=== PATIENT | female | born 1980 | race African-American/Black ===

== ENCOUNTER → 2019-08-03 | Emergency (ER) | payer OTHER ==
[~2019-08-03] VITALS: Ht 160 cm; Wt 65.8 kg
--- NOTE | 2019-08-03 05:36 | NUR ---
ED Nurse Note: Patient brought into ED by RA Soria from home c/o substernal chest pain with onset of 1 hour now, patient reports of having a heart attack 1 month prior, was given 2 sprays of nitro and 325 aspirin. complains of 5/10 pain. admits to smoking meth prior to onset of pain. VSS, NAD, ERMD at bedside. Will continue to monitor.
--- NOTE | 2019-08-03 05:45 | Emergency Room Report ---
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 However she has done that before in the past without the same symptom Upon arrival patient reports that she had a heart attack about a month ago At [facility] And reports that she has a leaky valve Does not take any medications Denies any headache Denies any shortness of breath Allergies: Coded Allergies: No Known Allergies (Unverified , 08/03/19) Patient History Past Medical History: see triage record Last Menstrual Period: unknown Reviewed Nursing Documentation: PMH: Agreed; PSxH: Agreed Nursing Documentation-PMH Past Medical History: No History, Except For Hx Hypertension: Yes - Htn Review of Systems All Other Systems: negative except mentioned in HPI Physical Exam Vital Signs Date Time Temp Pulse Resp B/P (MAP) Pulse Ox O2 Delivery O2 Flow Rate FiO2 08/03/19 05:31 98.4 85 18 149/100 (116) 100 Room Air Sp02 EP Interpretation: reviewed, normal General Appearance: well appearing Head: normocephalic, atraumatic Eyes: bilateral eye PERRL, bilateral eye EOMI ENT: hearing grossly normal, normal pharynx, TMs + canals normal, uvula midline Neck: full range of motion, supple, no meningismus, no bony tend Respiratory: lungs clear, normal breath sounds, no rhonchi, no respiratory distress, no retraction, no accessory muscle use Cardiovascular #1: normal peripheral pulses, regular rate, rhythm, no edema, no gallop, no JVD, no murmur Gastrointestinal: normal bowel sounds, non tender, soft, no mass, no organomegaly, non-distended, no guarding, no hernia, no pulsatile mass, no rebound Musculoskeletal: normal inspection Neurologic: motor strength/tone normal, oriented x3, sensory intact, responsive Psychiatric: mood/affect normal Skin: no rash Lymphatic: normal inspection, no adenopathy Medical Decision Making Diagnostic Impression: Primary Impression: Chest pain ER Course Patient is a fairly complex patient with multiple differential to consideration including but not limited to cardiac cardiopulmonary and vascular emergencies Patient has a benign medical evaluation EKG is appropriate without any ST changes Patient had chest x-ray also obtained which does not show any acute process Patient is questioning further studies and examination however at this time patient's EKG is normal X-ray appropriate Likely some reaction to methamphetamine use as well Patient is encouraged to stop doing drugs such as this especially given her history of cardiac disease and will have close outpatient follow-up EKG Diagnostic Results Rate: normal Rhythm: NSR ST Segments: no acute changes Rhythm Strip Diag. Results EP Interpretation: yes Rate: 68 Rhythm: NSR, no PVC's, no ectopy Last Vital Signs Date Time Temp Pulse Resp B/P (MAP) Pulse Ox O2 Delivery O2 Flow Rate FiO2 08/03/19 05:31 98.4 85 18 149/100 (116) 100 Room Air Status: unchanged Disposition: HOME, SELF-CARE Condition: Improved Referrals: [facility] Shikha Mustafa [facility] Patient Instructions: Nonspecific Chest Pain Additional Instructions: Patient is provided with the discharge instructions notified to follow up with primary doctor in the next 2-3 days otherwise return to the er with any worsening symptoms. Please note that this report is being documented using DRAGON technology. This can lead to erroneous entry secondary to incorrect interpretation by the dictating instrument. Ca Best DO Aug 03, 2019 05:45
[2019-08-03 05:49] VITALS: BP 149/100
--- NOTE | 2019-08-03 06:05 | NUR ---
ER DISCHARGE NOTE: Patient is cleared to be discharged per ERMD, pt is aox4, on room air, with stable vital signs. pt was given dc and instructions, pt was able to verbalize understanding, pt id band and iv site removed without complications. pt is able to ambulate with steady gait. pt took all belongings.
--- NOTE | 2019-08-03 09:43 | Diagnostic Imaging Report ---
Indication: Chest pain Technique: One view of the chest Comparison: none Findings: Lungs and pleural spaces are clear. Heart size is normal metallic foreign body projects over the left chest wall; per technologist, patient claims not to the wearing any external metal. Impression: No acute process Metallic foreign body projected over the left chest wall. Correlate with clinical findings
== END | disposition home or self-care (01) ==
LOC: EDBD 05:31 → EMR 06:05
DX: R07.9 Chest pain, unspecified (principal); I10 Essential (primary) hypertension
CPT/HCPCS: 71045; Z7502; 99283